=== PATIENT | male | born 1950 | race Caucasian/White ===

== ENCOUNTER → 2018-04-17 | Outpatient (CLI) | payer OTHER ==
[2018-04-16 10:14] VITALS: BP 158/70
[2018-04-16 10:38] LABS: ALANINE AMINOTRANSFERASE 15 U/L (12-78); ALBUMIN 3.8 g/dL (3.4-5.0); ANION GAP 10 mmol/L (5-15); CALCIUM 8.2 mg/dL (8.5-10.1); CHLORIDE 108 mmol/L (98-107); CREATININE 1.46 mg/dL (0.7-1.3)
[2018-04-16 10:41] LABS: ALKALINE PHOSPHATASE 125 U/L (45-117); BILIRUBIN,TOTAL 0.4 mg/dL (0.2-1.0); TOTAL PROTEIN 7.2 g/dL (6.4-8.2)
[~2018-04-17] VITALS: Ht 157.5 cm; Wt 64.3 kg
[~2018-04-17] MED LIST: ENTE0.5T4 PO; FERR325T5 PO; GABA300C10 PO; HYDR12.58 PO; LACTATED RINGERS 1,000 ML IV SCH; LIDOCAINE-MPF 1%, 2ML INFIL ONE; LISI-170 PO; OMEP-110 PO; SIMV10TA3 PO; TRAM50TA2 PO; WILL BRING LIST
[2018-04-17 08:05] VITALS: BP 158/70
== END | disposition home or self-care (01) ==
LOC: OUT 07:11 → CLISVCS 08:00 → OUT 08:45 → EDSTATUS 10:30
PROVIDERS: ATTEND Neurological Surgery
DX: Z01.812 Encounter for preprocedural laboratory examination (principal); M48.062 Spinal stenosis, lumbar region with neurogenic claudication; R73.01 Impaired fasting glucose
CPT/HCPCS: 36415; 80053; 82962; J7120

== ENCOUNTER → 2018-05-03 | Outpatient (CLI) | payer OTHER ==
[~2018-05-03] MED LIST changes: +FENTANYL PF 100 MCG/2ML ONE; -LACTATED RINGERS 1,000 ML IV SCH; -LIDOCAINE-MPF 1%, 2ML INFIL ONE; +MIDAZOLAM 1 MG/ML, 5ML ONE
== END | disposition home or self-care (01) ==
LOC: RAD 07:07
PROVIDERS: ATTEND Neurological Surgery
DX: M51.34 Other intervertebral disc degeneration, thoracic region (principal); M50.30 Other cervical disc degeneration, unspecified cervical region; M41.84 Other forms of scoliosis, thoracic region; M48.02 Spinal stenosis, cervical region; M25.78 Osteophyte, vertebrae; M48.062 Spinal stenosis, lumbar region with neurogenic claudication; E11.9 Type 2 diabetes mellitus without complications; F17.200 Nicotine dependence, unspecified, uncomplicated
CPT/HCPCS: 72141; 72146; 99156; 99157; J2250; J3010

== ENCOUNTER 2018-06-14 06:56 | Inpatient (IN) | payer OTHER ==
[~2018-06-14] VITALS: Ht 154.9 cm; Wt 67.2 kg
[~2018-06-14 06:56] MED LIST changes: -FENTANYL PF 100 MCG/2ML ONE; -MIDAZOLAM 1 MG/ML, 5ML ONE
[2018-06-14] MEDS ORDERED: LACTATED RINGERS 1,000 ML IV SCH (07:51)
[2018-06-14] MEDS ORDERED: PLEASE ENTER HEIGHT AND WEIGHT MC SCH (08:00)
[2018-06-14] MEDS ORDERED: ACETAMINOPHEN 500 MG TABLET PO ONE (08:00)
[2018-06-14] MEDS ORDERED: OXYcodone IR 5MG TABLET PO ONE (08:00)
[2018-06-14] MEDS ORDERED: GABAPENTIN 300 MG CAPSULE PO ONE (08:00)
[2018-06-14] MEDS ORDERED: PROPOFOL 50 ML ONE ×4 (08:40→12:43)
[2018-06-14] MEDS ORDERED: FENTANYL PF 250 MCG/5ML ONE ×3 (08:41→12:10)
[2018-06-14] MEDS ORDERED: OXYcodone 5 MG/5 ML ORAL.SOL UDC PO PRN (09:00)
[2018-06-14] MEDS ORDERED: hydrALAzine 20 MG/ML, 1ML IV PRN (09:00)
[2018-06-14] MEDS ORDERED: LABETALOL 5MG/ML, 20ML IV PRN (09:00)
[2018-06-14] MEDS ORDERED: FENTANYL PF 100 MCG/2ML IV PRN (09:00)
[2018-06-14] MEDS ORDERED: DIPHENHYDRAMINE 50 MG/ML, 1ML IVPush PRN ×2 (09:00→17:00)
[2018-06-14] MEDS ORDERED: PROCHLORPERAZINE 5 MG/ML, 2ML IV PRN (09:00)
[2018-06-14] MEDS ORDERED: DIAZEPAM 5 MG/ML, 2ML IVPush PRN (09:00)
[2018-06-14] MEDS ORDERED: MEPERIDINE/PF 25MG/0.5ML IVPush PRN (09:00)
[2018-06-14] MEDS ORDERED: BACITRACIN 50,000 UNIT ONE (09:14)
[2018-06-14] MEDS ORDERED: METHYLENE BLUE 10 MG/ML 10ML ONE (09:14)
[2018-06-14] MEDS ORDERED: THROMBIN 20,000 UNIT VIAL TP ONE (09:14)
[2018-06-14] MEDS ORDERED: BUPIVACAINE/PF-EPI 0.5% 1:200K ONE (09:14)
[2018-06-14] MEDS ORDERED: MIDAZOLAM 1 MG/ML, 2ML ONE (11:05)
[2018-06-14] MEDS ORDERED: REMIFENTANIL 1 MG ONE (11:06)
[2018-06-14] MEDS ORDERED: SUCCINYLCHOLINE 20 MG/ML, 10ML ONE (13:45)
[2018-06-14] MEDS ORDERED: PROPOFOL 10 MG/ML, 20ML ONE (13:45)
[2018-06-14] MEDS ORDERED: NEOSTIGMINE 1 MG/ML, 10ML ONE (13:45)
[2018-06-14] MEDS ORDERED: ROCURONIUM 10MG/ML,5ML ONE (13:45)
[2018-06-14] MEDS ORDERED: DEXAMETHASONE 4 MG/ML, 1ML ONE (13:45)
[2018-06-14] MEDS ORDERED: ONDANSETRON 2MG/ML, 2ML ONE (13:45)
[2018-06-14] MEDS ORDERED: GLYCOPYRROLATE 0.2MG/1ML, 5ML ONE (13:45)
[2018-06-14] MEDS ORDERED: CEFAZOLIN 1,000 MG ONE (13:45)
[2018-06-14] MEDS ORDERED: LABETALOL 5MG/ML, 20ML ONE (14:47)
[2018-06-14] MEDS ORDERED: hydrALAzine 20 MG/ML, 1ML ONE (14:47)
[2018-06-14] MEDS ORDERED: HYDROmorphone 2 MG/ML, 1ML ONE (15:06)
[2018-06-14] MEDS ORDERED: OXYcodone 5 MG/5 ML ORAL.SOL UDC ONE (15:06)
[2018-06-14] MEDS: HYDROmorphone 1 MG/ML, 1ML IV PRN (15:10)
[2018-06-14] MEDS ORDERED: HYDROmorphone 2MG TABLET PO PRN (17:00)
[2018-06-14] MEDS ORDERED: PROMETHAZINE 25 MG/ML, 1ML IM PRN (17:00)
[2018-06-14] MEDS ORDERED: MAGNESIUM HYDROXIDE 8%, 30ML UDC PO PRN (17:00)
[2018-06-14] MEDS ORDERED: ONDANSETRON 2MG/ML, 2ML IV PRN (17:00)
[2018-06-14] MEDS ORDERED: HYDROmorphone 2 MG/ML, 1ML IM PRN (17:00)
[2018-06-14] MEDS ORDERED: DIPHENHYDRAMINE 50 MG/ML, 1ML IM PRN (17:00)
[2018-06-14] MEDS ORDERED: DIAZEPAM 5 MG/ML, 2ML IV PRN (17:00)
[2018-06-14] MEDS ORDERED: DIPHENHYDRAMINE 50 MG CAPSULE PO PRN (17:00)
[2018-06-14] MEDS ORDERED: BISACODYL 10 MG SUPP PR PRN (17:00)
[2018-06-14] MEDS ORDERED: HYDROmorphone 1 MG/ML, 1ML IVPush PRN (17:00)
[2018-06-14] MEDS: CEFAZOLIN PMX 1GM/50ML 50 ML IVPB SCH (19:25)
[2018-06-14] MEDS: DIAZEPAM 5 MG TABLET PO PRN (19:35)
[2018-06-14 19:54] VITALS: BP 158/64
[2018-06-14] MEDS: OMEPRAZOLE 20 MG CAPSULE.DR PO SCH (20:35)
[2018-06-14] MEDS: GABAPENTIN 300 MG CAPSULE PO SCH (20:35)
[2018-06-14] MEDS: SIMVASTATIN 10 MG TABLET PO SCH (20:35)
[2018-06-14] MEDS: NS + 20MEQ KCL 1,000 ML IV SCH (20:35)
[2018-06-14] MEDS ORDERED: ZOLPIDEM 5MG TABLET PO PRN (21:00)
[2018-06-15 00:28] VITALS: BP 155/68
[2018-06-15] MEDS: CEFAZOLIN PMX 1GM/50ML 50 ML IVPB SCH (03:23)
[2018-06-15 04:40] VITALS: BP 171/73
[2018-06-15 04:40] LABS: BASOPHILS # (AUTO) 0.01 x10^3/uL (0-0.1); BASOPHILS % (AUTO) 0 % (0-1); EOSINOPHILS % (AUTO) 0 % (1-7); LYMPHOCYTES # (AUTO) 0.53 x10^3/uL (1-3.4); LYMPHOCYTES % (AUTO) 3 % (22-44); MD NO; MEAN CORPUSCULAR HEMOGLOBIN 31.1 pg (27.5-34.5); MEAN CORPUSCULAR HGB CONC 33.8 g/dL (33.2-36.2); MEAN CORPUSCULAR VOLUME 92.2 fL (81-97); MEAN PLATELET VOLUME 8.7 fL (7.4-10.4); MONOCYTES # (AUTO) 0.82 x10^3/uL (0.2-0.8); MONOCYTES % (AUTO) 5 % (2-9); NEUTROPHILS # (AUTO) 15.59 x10^3/uL (1.8-6.8); NEUTROPHILS % (AUTO) 92 % (42-75); PLATELET COUNT 227 x10^3/uL (130-400); RED BLOOD COUNT 3.42 x10^6/uL (4.38-5.82)
[2018-06-15 04:41] LABS: ANION GAP 9 mmol/L (5-15); CALCIUM 8.2 mg/dL (8.5-10.1); CHLORIDE 111 mmol/L (98-107); CREATININE 1.37 mg/dL (0.7-1.3)
[2018-06-15 06:33] VITALS: BP 169/67
[2018-06-15] MEDS ORDERED: LISINOPRIL 20 MG TABLET PO SCH (09:00)
[2018-06-15] MEDS: ENTECAVIR 0.5 MG HOMEMEDPO SCH (09:00)
[2018-06-15] MEDS: FERROUS SULFATE 325 MG TABLET PO SCH (09:35)
[2018-06-15] MEDS: HYDROCHLOROTHIAZIDE 12.5 MG CAPSULE PO SCH (09:35)
[2018-06-15] MEDS: OMEPRAZOLE 20 MG CAPSULE.DR PO SCH ×2 (09:35→21:00)
[2018-06-15] MEDS: SENNA/DOCUSATE TABLET PO SCH (09:35)
[2018-06-15] MEDS: GABAPENTIN 300 MG CAPSULE PO SCH ×3 (09:35→21:00)
[2018-06-15] MEDS: DIAZEPAM 5 MG TABLET PO PRN (10:25)
[2018-06-15] MEDS: NS + 20MEQ KCL 1,000 ML IV SCH ×2 (10:30→23:24)
[2018-06-15] MEDS: OXYcodone/APAP 5/325MG TABLET PO PRN (10:47)
[2018-06-15] MEDS ORDERED: OXYC-302 PO (11:45)
[2018-06-15] MEDS ORDERED: CYCL-259 PO (11:45)
[2018-06-15 12:14] VITALS: BP 156/69
[2018-06-15] MEDS: CYCLOBENZAPRINE 10 MG TABLET PO SCH ×2 (15:43→21:00)
[2018-06-15 18:32] VITALS: BP 162/59
[2018-06-15] MEDS: SIMVASTATIN 10 MG TABLET PO SCH (21:00)
[2018-06-15] MEDS: LISINOPRIL 20 MG TABLET PO SCH (21:00)
[2018-06-16 00:42] VITALS: BP 164/72
[2018-06-16] MEDS: DIAZEPAM 5 MG TABLET PO PRN (01:01)
[2018-06-16 05:20] LABS: BASOPHILS # (AUTO) 0.03 x10^3/uL (0-0.1); BASOPHILS % (AUTO) 0 % (0-1); EOSINOPHILS # (AUTO) 0.32 x10^3/uL (0-0.4); EOSINOPHILS % (AUTO) 2 % (1-7); LYMPHOCYTES # (AUTO) 1.09 x10^3/uL (1-3.4); LYMPHOCYTES % (AUTO) 7 % (22-44); MD NO; MEAN CORPUSCULAR HEMOGLOBIN 31.1 pg (27.5-34.5); MEAN CORPUSCULAR VOLUME 91.4 fL (81-97); MEAN PLATELET VOLUME 8.9 fL (7.4-10.4); MONOCYTES # (AUTO) 0.72 x10^3/uL (0.2-0.8); MONOCYTES % (AUTO) 4 % (2-9); NEUTROPHILS # (AUTO) 14.68 x10^3/uL (1.8-6.8); NEUTROPHILS % (AUTO) 87 % (42-75); PLATELET COUNT 199 x10^3/uL (130-400); RED BLOOD COUNT 3.42 x10^6/uL (4.38-5.82); RED CELL DISTRIBUTION WIDTH 14.4 % (9.4-14.8)
[2018-06-16] MEDS: GABAPENTIN 300 MG CAPSULE PO SCH ×3 (08:35→20:28)
[2018-06-16] MEDS: FERROUS SULFATE 325 MG TABLET PO SCH (08:35)
[2018-06-16] MEDS: CYCLOBENZAPRINE 10 MG TABLET PO SCH ×3 (08:36→20:27)
[2018-06-16] MEDS: HYDROCHLOROTHIAZIDE 12.5 MG CAPSULE PO SCH (08:36)
[2018-06-16] MEDS: ENTECAVIR 0.5 MG HOMEMEDPO SCH (08:36)
[2018-06-16] MEDS: OMEPRAZOLE 20 MG CAPSULE.DR PO SCH ×2 (08:36→20:27)
[2018-06-16] MEDS: SENNA/DOCUSATE TABLET PO SCH (08:36)
[2018-06-16 09:20] VITALS: BP 142/60
[2018-06-16] MEDS: NS + 20MEQ KCL 1,000 ML IV SCH ×2 (10:33→23:30)
[2018-06-16 12:35] VITALS: BP 142/53
[2018-06-16 19:46] VITALS: BP 105/71
[2018-06-16] MEDS: SIMVASTATIN 10 MG TABLET PO SCH (20:27)
[2018-06-16] MEDS: LISINOPRIL 20 MG TABLET PO SCH (20:27)
[2018-06-16 20:29] VITALS: BP 135/60
[2018-06-16] MEDS: OXYcodone/APAP 5/325MG TABLET PO PRN (23:23)
[2018-06-17 00:43] VITALS: BP 144/75
[2018-06-17 07:06] VITALS: BP 132/67
[2018-06-17] MEDS: ENTECAVIR 0.5 MG HOMEMEDPO SCH (09:00)
[2018-06-17] MEDS: HYDROCHLOROTHIAZIDE 12.5 MG CAPSULE PO SCH (09:05)
[2018-06-17] MEDS: OMEPRAZOLE 20 MG CAPSULE.DR PO SCH ×2 (09:05→21:21)
[2018-06-17] MEDS: CYCLOBENZAPRINE 10 MG TABLET PO SCH ×3 (09:05→22:08)
[2018-06-17] MEDS: SENNA/DOCUSATE TABLET PO SCH (09:06)
[2018-06-17] MEDS: FERROUS SULFATE 325 MG TABLET PO SCH (09:06)
[2018-06-17] MEDS: GABAPENTIN 300 MG CAPSULE PO SCH ×3 (09:06→22:08)
[2018-06-17] MEDS: OXYcodone/APAP 5/325MG TABLET PO PRN ×4 (09:08→22:34)
[2018-06-17] MEDS: NS + 20MEQ KCL 1,000 ML IV SCH ×2 (12:00→22:09)
[2018-06-17 13:21] VITALS: BP 154/65
[2018-06-17 19:29] VITALS: BP 100/50
[2018-06-17] MEDS: SIMVASTATIN 10 MG TABLET PO SCH (21:20)
[2018-06-17] MEDS: LISINOPRIL 20 MG TABLET PO SCH (21:23)
[2018-06-17 21:25] VITALS: BP 112/73
[2018-06-18 02:05] VITALS: BP 119/63
[2018-06-18] MEDS: OXYcodone/APAP 5/325MG TABLET PO PRN ×3 (02:59→12:59)
[2018-06-18 06:57] VITALS: BP 115/61
[2018-06-18] MEDS: ENTECAVIR 0.5 MG HOMEMEDPO SCH (09:00)
[2018-06-18] MEDS: GABAPENTIN 300 MG CAPSULE PO SCH (09:08)
[2018-06-18] MEDS: HYDROCHLOROTHIAZIDE 12.5 MG CAPSULE PO SCH (09:08)
[2018-06-18] MEDS: FERROUS SULFATE 325 MG TABLET PO SCH (09:08)
[2018-06-18] MEDS: OMEPRAZOLE 20 MG CAPSULE.DR PO SCH (09:08)
[2018-06-18] MEDS: SENNA/DOCUSATE TABLET PO SCH (09:09)
[2018-06-18] MEDS: CYCLOBENZAPRINE 10 MG TABLET PO SCH (09:09)
[2018-06-18] MEDS: NS + 20MEQ KCL 1,000 ML IV SCH (10:13)
[2018-06-18 13:06] VITALS: BP 124/65
[2018-06-18] MEDS ORDERED: MORP15TA3 PO (13:22)
== END 2018-06-18 14:00 | disposition home or self-care (01) | DRG 472 ==
LOC: ORIP 06:56 → 4NOR 16:18 → DCLOUNGE 06-18 13:52
PROVIDERS: ADMIT Neurological Surgery; ATTEND Neurological Surgery
PROC: 01NB0ZZ Release Lumbar Nerve, Open Approach (ICD-10-PCS; 2018-06-14)
PROC: 00NX0ZZ Release Thoracic Spinal Cord, Open Approach (ICD-10-PCS; 2018-06-14)
PROC: 4A11X4G Monitoring of Peripheral Nervous Electrical Activity, Intraoperative, External Approach (ICD-10-PCS; 2018-06-14)
PROC: 0RG1071 Fusion of Cervical Vertebral Joint with Autologous Tissue Substitute, Posterior Approach, Posterior Column, Open Approach (ICD-10-PCS; principal; 2018-06-14 10:30)
PROC: 0SB20ZZ Excision of Lumbar Vertebral Disc, Open Approach (ICD-10-PCS; 2018-06-14 10:30)
DX: M48.061 Spinal stenosis, lumbar region without neurogenic claudication (principal); G95.9 Disease of spinal cord, unspecified; M48.02 Spinal stenosis, cervical region; M48.04 Spinal stenosis, thoracic region; M48.07 Spinal stenosis, lumbosacral region; M54.17 Radiculopathy, lumbosacral region
CPT/HCPCS: 36415; 72040; 72100; J3490; 80048; 85025; 86850; 86900; C1713; G0378; J0690; J1100; J1170; J2250; J2270; J2405; J2704; J2710; J3010; J3480; J0330; J7120; Q9968